=== PATIENT | male | born 1945 ===

== ENCOUNTER 2022-12-01 05:38 | Day surgery (SDC) | payer OTHER ==
[2022-11-25 10:36] LABS: HEMATOCRIT 41.1 % (39.0-48.0); HEMOGLOBIN 14.1 g/dL (13-16.00); MEAN CELL VOLUME 98.8 fL (80.0-100.00); MEAN CORPUSCULAR HEMOGLOBIN 33.8 pg (27.00-32.0); MEAN CORPUSCULAR HGB CONC 34.2 g/dl (32.0-36.0); PLATELET COUNT 184 K/uL (150-450); RED BLOOD COUNT 4.16 M/uL (4.00-6.00); RED CELL DISTRIBUTION WIDTH 12.7 % (11.5-14.5)
[~2022-12-01] VITALS: Ht 160 cm; Wt 76.2 kg
[~2022-12-01 05:38] MED LIST: CARVEDILOL12.5 M1 PO; CARVEDILOL3.125 M1 PO; CILOSTAZOL50 MG PO; FAMOTID PO; GABAP PO; GLIPIZIDE XL10 MG PO; JARDIANCE10 MG PO; TAMS0.4C PO; TIROSINT75 MCG PO
== END 2022-12-01 10:55 | disposition home or self-care (01) ==
LOC: CIR.AMB 05:38
PROVIDERS: ATTEND Orthopaedic Surgery Hand Surgery
DX: G56.01 Carpal tunnel syndrome, right upper limb (principal); E11.9 Type 2 diabetes mellitus without complications; E78.00 Pure hypercholesterolemia, unspecified; Z20.822 Contact with and (suspected) exposure to COVID-19; I10 Essential (primary) hypertension; Z91.041 Radiographic dye allergy status